=== PATIENT | male | born 1960 | race Caucasian/White ===

== ENCOUNTER 2017-01-24 00:24 | Emergency (ER) | payer OTHER ==
--- NOTE | 2017-01-24 01:03 | ED NURSING NOTES ---
Clinical Report - Nurses [facility] [address] [place] [place] [address] 01/24/2017 0:24 Patient: MACIEL BAHENA TRIAGE Triage time 00:28. Acuity: LEVEL 4. Chief Complaint: INJURY TO RIGHT HAND. 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 Last tetanus 7 years ago.). Alert. No acute distress. SEPSIS SCREEN: Sepsis Screen: negative. Negative (no infection suspected/documented). --00:32 Evert Rene R.N. 00:28 01/24/17. BP: 144/83 (regular adult cuff) taken on the left arm, via an automated monitor, while lying. HR: 80 (normal rate). RR: 16 (regular, unlabored and normal). O2 saturation: 100% on room air. Temp: 98.3 F (oral). Pain level now: 0/10. --00:32 Evert Rene R.N. Weight: 108.4 kg stated. Height/Length: 74 inches Per Patient. BMI: 30.7. --00:29 Evert Rene R.N. Medications Lipitor Oral. --00:30 Evert Rene R.N. Venlafaxine HCl Oral. --00:30 Evert Rene R.N. Medication/allergy information source: the patient. --00:32 Evert Rene R.N. Allergies No Known Drug Allergy. --00:30 Evert Rene R.N. History Arrived by private vehicle. Historian: patient. Unaccompanied. This occurred just prior to arrival. He sustained a laceration. 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 PAST MEDICAL HX: Tetanus status: up-to-date. SOCIAL HX: Never smoker. No alcohol use or drug use. He has not traveled outside the [place] The patient was not exposed to MRSA. ABUSE ASSESSMENT: Abuse assessment: The patient was asked "Do you feel safe in your home?" and "Has anyone hurt you or threatened to hurt you?". No report of abuse. SELF HARM ASSESSMENT: A self harm assessment was performed. The patient answered "no" to the question "Do you have thoughts of harming or killing yourself?" and "Have you recently had thoughts about harming or killing others?". FALL RISK ASSESSMENT: Fall risk assessment completed. No fall risk identified. NUTRITIONAL RISK ASSESSMENT: The nutritional risk assessment revealed no deficiencies. FUNCTIONAL ASSESSMENT: Functional assessment: no impairments noted. LEARNING NEEDS ASSESSMENT: The learning needs assessment revealed no barriers. SKIN INTEGRITY ASSESSMENT: Skin integrity risk assessment completed. No skin integrity risk identified. --00:32 Evert Rene R.N. PROBLEMS: Anxiety Reaction. Depression. Hypercholesterolemia. --00:30 Evert Rene R.N. Assessment GENERAL / NEURO / PSYCH: Alert. Oriented X 4. Appears in no acute distress. [place] Coma Scale: 15- eyes open spontaneously (4); best verbal response- oriented x 4 (5); best motor response- obeys commands (6). Patient appears calm and cooperative. RESPIRATORY: No respiratory distress. Respirations not labored. SKIN: Skin is warm and dry. --00:32 Evert Rene R.N. Interventions ID band on patient. To treatment room. --00:32 Evert Rene R.N. PHYSICAL ASSESSMENT Ambulatory to room. GENERAL / NEURO / PSYCH: Oriented X 4. Alert. Appears in no acute distress. RESPIRATORY: No respiratory distress. Respirations not labored. EXTREMITIES: Capillary refill is less than 2 seconds in the extremities. Extremity pulses are within normal limits. Extremities exhibit normal ROM. Neuro-vascular status intact to the extremity. Right hand. Dorsal right hand. Right little finger: tenderness and superficial laceration. No deformity. No limitation in movement. SKIN: Skin intact. Skin is warm and dry. --00:33 Evert Rene R.N. NURSING PROGRESS NOTES The initial plan of care for this patient has been created This plan of care was discussed with the patient. Neuro-vascular extremity check distal to injury: pulses intact, no edema, capillary refill <2 seconds and sensation intact. Reassurance given to the patient. Two patient identifiers checked. Call light placed in reach. Side rails up x 1. Bed placed in lowest position. Brakes of bed on. --00:33 Evert Rene R.N. WOUND REPAIR: Wound repair performed by ED physician. The wound is located on the right little finger. Preparation: suture tray set-up with 1% lidocaine. Procedure: wound repaired with sutures (1 pack). Post-procedure: he was stable, no complications, bleeding controlled, neuro-vascular status intact distal to wound and dressing applied. Applied clean dressing consisting of Band-Aid, following the application of antibiotic ointment (bacitracin). --01:09 Evert Rene R.N. DISPOSITION / DISCHARGE Departure time: 01:11. Condition at departure: stable. The goals identified in the patient's plan of care were met. No learning barriers present. Discharge instructions provided and reviewed with the patient. Patient verbalized understanding. Written instructions provided in Yemeni. ( Maciel verbalizes understanding of all d/c instructions including need to keep wound clean, dry and f/u with PCP for wound re-check and removal or stitches. He has no questions and voices no concerns at this time.). The patient was discharged by the physician. He was discharged home and unaccompanied at time of discharge. He left the Emergency Department ambulatory and via private vehicle. Patient driving. JANEE COMA SCORE: [place] Coma Scale: 15- eyes open spontaneously (4); best verbal response- oriented x 4 (5); best motor response- obeys commands (6). --01:11 Evert Rene R.N. 01:09 01/24/17. BP: deferred. HR: deferred. RR: deferred. O2 saturation: deferred. Temp: deferred. Pain level now deferred. --01:11 Evert Rene R.N. Locked/Released at 01/24/2017 1:11 by Evert Rene R.N.
--- NOTE | 2017-01-24 01:03 | ED NURSING NOTES ---
Clinical Report - Nurses [facility] [address] [place] [address] 01/24/2017 0:24 Patient: MACIEL BAHENA TRIAGE Triage time 00:28. Acuity: LEVEL 4. Chief Complaint: INJURY TO RIGHT HAND. 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 Last tetanus 7 years ago.). Alert. No acute distress. SEPSIS SCREEN: Sepsis Screen: negative. Negative (no infection suspected/documented). --00:32 Evert Rene R.N. 00:28 01/24/17. BP: 144/83 (regular adult cuff) taken on the left arm, via an automated monitor, while lying. HR: 80 (normal rate). RR: 16 (regular, unlabored and normal). O2 saturation: 100% on room air. Temp: 98.3 F (oral). Pain level now: 0/10. --00:32 Evert Rene R.N. Weight: 108.4 kg stated. Height/Length: 74 inches Per Patient. BMI: 30.7. --00:29 Evert Rene R.N. Medications Lipitor Oral. --00:30 Evert Rene R.N. Venlafaxine HCl Oral. --00:30 Evert Rene R.N. Medication/allergy information source: the patient. --00:32 Evert Rene R.N. Allergies No Known Drug Allergy. --00:30 Evert Rene R.N. History Arrived by private vehicle. Historian: patient. Unaccompanied. This occurred just prior to arrival. He sustained a laceration. 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 PAST MEDICAL HX: Tetanus status: up-to-date. SOCIAL HX: Never smoker. No alcohol use or drug use. He has not traveled outside the [place] The patient was not exposed to MRSA. ABUSE ASSESSMENT: Abuse assessment: The patient was asked "Do you feel safe in your home?" and "Has anyone hurt you or threatened to hurt you?". No report of abuse. SELF HARM ASSESSMENT: A self harm assessment was performed. The patient answered "no" to the question "Do you have thoughts of harming or killing yourself?" and "Have you recently had thoughts about harming or killing others?". FALL RISK ASSESSMENT: Fall risk assessment completed. No fall risk identified. NUTRITIONAL RISK ASSESSMENT: The nutritional risk assessment revealed no deficiencies. FUNCTIONAL ASSESSMENT: Functional assessment: no impairments noted. LEARNING NEEDS ASSESSMENT: The learning needs assessment revealed no barriers. SKIN INTEGRITY ASSESSMENT: Skin integrity risk assessment completed. No skin integrity risk identified. --00:32 Evert Rene R.N. PROBLEMS: Anxiety Reaction. Depression. Hypercholesterolemia. --00:30 Evert Rene R.N. Assessment GENERAL / NEURO / PSYCH: Alert. Oriented X 4. Appears in no acute distress. [place] Coma Scale: 15- eyes open spontaneously (4); best verbal response- oriented x 4 (5); best motor response- obeys commands (6). Patient appears calm and cooperative. RESPIRATORY: No respiratory distress. Respirations not labored. SKIN: Skin is warm and dry. --00:32 Evert Rene R.N. Interventions ID band on patient. To treatment room. --00:32 Evert Rene R.N. PHYSICAL ASSESSMENT Ambulatory to room. GENERAL / NEURO / PSYCH: Oriented X 4. Alert. Appears in no acute distress. RESPIRATORY: No respiratory distress. Respirations not labored. EXTREMITIES: Capillary refill is less than 2 seconds in the extremities. Extremity pulses are within normal limits. Extremities exhibit normal ROM. Neuro-vascular status intact to the extremity. Right hand. Dorsal right hand. Right little finger: tenderness and superficial laceration. No deformity. No limitation in movement. SKIN: Skin intact. Skin is warm and dry. --00:33 Evert Rene R.N. NURSING PROGRESS NOTES The initial plan of care for this patient has been created This plan of care was discussed with the patient. Neuro-vascular extremity check distal to injury: pulses intact, no edema, capillary refill <2 seconds and sensation intact. Reassurance given to the patient. Two patient identifiers checked. Call light placed in reach. Side rails up x 1. Bed placed in lowest position. Brakes of bed on. --00:33 Evert Rene R.N. WOUND REPAIR: Wound repair performed by ED physician. The wound is located on the right little finger. Preparation: suture tray set-up with 1% lidocaine. Procedure: wound repaired with sutures (1 pack). Post-procedure: he was stable, no complications, bleeding controlled, neuro-vascular status intact distal to wound and dressing applied. Applied clean dressing consisting of Band-Aid, following the application of antibiotic ointment (bacitracin). --01:09 Evert Rene R.N. DISPOSITION / DISCHARGE Departure time: 01:11. Condition at departure: stable. The goals identified in the patient's plan of care were met. No learning barriers present. Discharge instructions provided and reviewed with the patient. Patient verbalized understanding. Written instructions provided in Czech. ( Maciel verbalizes understanding of all d/c instructions including need to keep wound clean, dry and f/u with PCP for wound re-check and removal or stitches. He has no questions and voices no concerns at this time.). The patient was discharged by the physician. He was discharged home and unaccompanied at time of discharge. He left the Emergency Department ambulatory and via private vehicle. Patient driving. JANEE COMA SCORE: [place] Coma Scale: 15- eyes open spontaneously (4); best verbal response- oriented x 4 (5); best motor response- obeys commands (6). --01:11 Evert Rene R.N. 01:09 01/24/17. BP: deferred. HR: deferred. RR: deferred. O2 saturation: deferred. Temp: deferred. Pain level now deferred. --01:11 Evert Rene R.N. Locked/Released at 01/24/2017 1:11 by Evert Rene R.N.
--- NOTE | 2017-01-24 01:03 | ED CLINICAL REPORT ---
Clinical Report - Physicians/Mid Levels [facility] [address] [place] [address] 01/24/2017 0:24 Patient: BOUBACAR BAHENA Time Seen: 00:30. Arrived- By private vehicle. Historian- patient. HISTORY OF PRESENT ILLNESS Chief Complaint: Injury to the right 5th (little) finger. The injury happened just prior to arrival. Occurred at home. 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 Patient is experiencing mild pain. No other injury. REVIEW OF SYSTEMS The patient sustained a laceration. No swelling, tingling, numbness, weakness or foreign body. All systems otherwise negative, except as recorded above. PAST HISTORY Problems: Anxiety Reaction. Depression. Hypercholesterolemia. Additional Surgeries: no known surgeries. Medications: Venlafaxine HCl Oral. Lipitor Oral. Allergies: No Known Drug Allergy. SOCIAL HISTORY Never smoker. No alcohol use or drug use. ADDITIONAL NOTES The nursing notes have been reviewed. PHYSICAL EXAM Vital Signs: 01/24/2017 00:28 BP: 144/83. HR: 80. RR: 16. O2 saturation: 100%. Temp: 98.3 F. Pain level now: 0/10. Have been reviewed. Appearance: Alert. Oriented X3. No acute distress. Head: Head atraumatic. Eyes: Eyes normal inspection. ENT: Nose normal. Neck: Normal inspection. CVS: Pulses normal. Respiratory: No respiratory distress. Back: ROM normal. Skin: Skin warm and dry. Extremities: Right little finger: mild tenderness and subcutaneous 1.5 cm laceration of the dorsal aspect and PIP joint. Neurovascular intact distally. No erythema, swelling, abrasion, ecchymosis or puncture wound. No foreign body or deformity. No limitation in movement. No subungual hematoma or amputation present. No hand injury. Hand and wrist exam otherwise negative. Extremities otherwise negative. Neuro, Vascular and Tendons: Vascular status intact. Sensation intact. Motor intact. Tendon function intact. Neuro: No motor deficit. No sensory deficit. (Grossly oriented.). LABS, X-RAYS, AND EKG Pulse Oximetry: 01/24/2017 00:28 O2 saturation: 100%. (FIO2 - room air). Interpretation: normal. PROGRESS AND PROCEDURES Laceration Repair: Location: right little finger. Length: 1.5cm. Complexity: simple (local anesthesia used and sutured). Wound depth/shape- subcutaneous and linear. Wound is clean. Distal neuro/vascular/tendon status normal. No tendon deficit. Local anesthesia provided using 2% lidocaine. Prepped with Betadine. Wound explored, cleansed, irrigated and examined to the base in bloodless field with normal saline. Closure of skin: interrupted 5-0 nylon (4 sutures). Post-procedure: he is stable and there are no complications. Bleeding is controlled and neuro-vascular status is intact distal to the wound. Dressing applied. Tetanus immunization up-to-date. Patient counseled in person regarding the patient's stable condition, diagnosis and need for follow-up. Concerns were addressed. Old medical records reviewed. Disposition: Discharged. Condition: stable and improved. CLINICAL IMPRESSION Single superficial laceration to the right little finger.No foreign body present or right fingernail injury. INSTRUCTIONS Protect wound and keep wound area clean. (You may let water run over your wound, but do not immerse, rub, or scrub the wound until sutures are removed.). Warnings: GENERAL WARNINGS: Return or contact your physician immediately if your condition worsens or changes unexpectedly, if not improving as expected, or if other problems arise. Your Current Medications: CONTINUE TAKING THE FOLLOWING MEDICATIONS: Lipitor Oral. Venlafaxine HCl Oral. Follow-up: Follow up with your doctor in seven days for suture removal. Understanding of the discharge instructions verbalized by patient. (Electronically signed by Ayla Galeano MD 02/02/2017 13:35)
--- NOTE | 2017-01-24 01:03 | ED CLINICAL REPORT ---
Clinical Report - Physicians/Mid Levels [facility] [address] [place] [place] [address] 01/24/2017 0:24 Patient: BOUBACAR BAHENA Time Seen: 00:30. Arrived- By private vehicle. Historian- patient. HISTORY OF PRESENT ILLNESS Chief Complaint: Injury to the right 5th (little) finger. The injury happened just prior to arrival. Occurred at home. 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 Patient is experiencing mild pain. No other injury. REVIEW OF SYSTEMS The patient sustained a laceration. No swelling, tingling, numbness, weakness or foreign body. All systems otherwise negative, except as recorded above. PAST HISTORY Problems: Anxiety Reaction. Depression. Hypercholesterolemia. Additional Surgeries: no known surgeries. Medications: Venlafaxine HCl Oral. Lipitor Oral. Allergies: No Known Drug Allergy. SOCIAL HISTORY Never smoker. No alcohol use or drug use. ADDITIONAL NOTES The nursing notes have been reviewed. PHYSICAL EXAM Vital Signs: 01/24/2017 00:28 BP: 144/83. HR: 80. RR: 16. O2 saturation: 100%. Temp: 98.3 F. Pain level now: 0/10. Have been reviewed. Appearance: Alert. Oriented X3. No acute distress. Head: Head atraumatic. Eyes: Eyes normal inspection. ENT: Nose normal. Neck: Normal inspection. CVS: Pulses normal. Respiratory: No respiratory distress. Back: ROM normal. Skin: Skin warm and dry. Extremities: Right little finger: mild tenderness and subcutaneous 1.5 cm laceration of the dorsal aspect and PIP joint. Neurovascular intact distally. No erythema, swelling, abrasion, ecchymosis or puncture wound. No foreign body or deformity. No limitation in movement. No subungual hematoma or amputation present. No hand injury. Hand and wrist exam otherwise negative. Extremities otherwise negative. Neuro, Vascular and Tendons: Vascular status intact. Sensation intact. Motor intact. Tendon function intact. Neuro: No motor deficit. No sensory deficit. (Grossly oriented.). LABS, X-RAYS, AND EKG Pulse Oximetry: 01/24/2017 00:28 O2 saturation: 100%. (FIO2 - room air). Interpretation: normal. PROGRESS AND PROCEDURES Laceration Repair: Location: right little finger. Length: 1.5cm. Complexity: simple (local anesthesia used and sutured). Wound depth/shape- subcutaneous and linear. Wound is clean. Distal neuro/vascular/tendon status normal. No tendon deficit. Local anesthesia provided using 2% lidocaine. Prepped with Betadine. Wound explored, cleansed, irrigated and examined to the base in bloodless field with normal saline. Closure of skin: interrupted 5-0 nylon (4 sutures). Post-procedure: he is stable and there are no complications. Bleeding is controlled and neuro-vascular status is intact distal to the wound. Dressing applied. Tetanus immunization up-to-date. Patient counseled in person regarding the patient's stable condition, diagnosis and need for follow-up. Concerns were addressed. Old medical records reviewed. Disposition: Discharged. Condition: stable and improved. CLINICAL IMPRESSION Single superficial laceration to the right little finger.No foreign body present or right fingernail injury. INSTRUCTIONS Protect wound and keep wound area clean. (You may let water run over your wound, but do not immerse, rub, or scrub the wound until sutures are removed.). Warnings: GENERAL WARNINGS: Return or contact your physician immediately if your condition worsens or changes unexpectedly, if not improving as expected, or if other problems arise. Your Current Medications: CONTINUE TAKING THE FOLLOWING MEDICATIONS: Lipitor Oral. Venlafaxine HCl Oral. Follow-up: Follow up with your doctor in seven days for suture removal. Understanding of the discharge instructions verbalized by patient. (Electronically signed by Ayla Galeano MD 02/02/2017 13:35)
--- NOTE | 2017-02-02 13:35 | ED MAR SUMMARY ---
..... Medication Administration Record [facility] [address] [id number] Patient: BOUBACAR BAHENA Visit ID: [id number] 57y, M Weight: 108.4 kg Height/Length: 74 in BMI: 30.7 ALLERGIES: No Known Drug Allergy
--- NOTE | 2017-02-02 13:35 | ED MAR SUMMARY ---
..... Medication Administration Record [facility] [address] [place] [id number] Patient: BOUBACAR BAHENA Visit ID: [id number] 57y, M Weight: 108.4 kg Height/Length: 74 in BMI: 30.7 ALLERGIES: No Known Drug Allergy
--- NOTE | 2017-02-02 13:35 | ED MED RECONCILIATION SUMMARY ---
Patient: BOUBACAR BAHENA Medication Reconciliation Report [facility] VisitID: [id number] [address] [place] [address] 57y, M Registration Date/Time: 01/24/2017 Weight: 108.4 kg Height/Length: 74 in. BMI: 30.7 ALLERGIES: No Known Drug Allergy The patient's Home Medications are listed below: CONTINUE TAKING THE FOLLOWING MEDICATIONS: Lipitor Oral Venlafaxine HCl Oral The source(s) of the original Home Medication information: patient The following Medications were given to the patient in the Emergency Department: None. The following Medications were prescribed to the patient: None.
--- NOTE | 2017-02-02 13:35 | ED MED RECONCILIATION SUMMARY ---
Patient: BOUBACAR BAHENA Medication Reconciliation Report [facility] VisitID: [id number] [address] [place] [address] 57y, M Registration Date/Time: 01/24/2017 Weight: 108.4 kg Height/Length: 74 in. BMI: 30.7 ALLERGIES: No Known Drug Allergy The patient's Home Medications are listed below: CONTINUE TAKING THE FOLLOWING MEDICATIONS: Lipitor Oral Venlafaxine HCl Oral The source(s) of the original Home Medication information: patient The following Medications were given to the patient in the Emergency Department: None. The following Medications were prescribed to the patient: None.
--- NOTE | 2017-02-02 13:35 | ED DISCHARGE INSTRUCTIONS ---
Patient: BOUBACAR BAHENA General Instructions [facility] VisitID: [id number] [place] [address] 57y, M Registration Date/Time: 01/24/2017 Single superficial laceration to the right little finger.No foreign body present or right fingernail injury. INSTRUCTIONS Protect wound and keep wound area clean. (You may let water run over your wound, but do not immerse, rub, or scrub the wound until sutures are removed.). Warnings: GENERAL WARNINGS: Return or contact your physician immediately if your condition worsens or changes unexpectedly, if not improving as expected, or if other problems arise. Your Current Medications: CONTINUE TAKING THE FOLLOWING MEDICATIONS: Lipitor Oral. Venlafaxine HCl Oral. Follow-up: Follow up with your doctor in seven days for suture removal. Understanding of the discharge instructions verbalized by patient. ADDITIONAL INFORMATION Laceration, Extremity (Sutures, Kvng, Or Tape) A laceration is a cut through the skin. This will usually require stitches (sutures) or kvng if it is deep. Minor cuts may be treated with surgical tape closures. Home care The following guidelines will help you care for your laceration at home: Keep the wound clean and dry. If a bandage was applied and it becomes wet or dirty, replace it. Otherwise, leave it in place for the first 24 hours, then change it once a day or as directed. If stitches or kvng were used, clean the wound daily: After removing the bandage, wash the area with soap and water. Use a wet cotton swab to loosen and remove any blood or crust that forms. After cleaning, keep the wound clean and dry. Talk with your doctor before applying any antibiotic ointment to the wound. Reapply the bandage. You may remove the bandage to shower as usual after the first 24 hours, but do not soak the area in water (no swimming) until the stitches or kvng are removed. If surgical tape closures were used, keep the area clean and dry. If it becomes wet, blot it dry with a towel. The doctor may prescribe an antibiotic cream or ointment to prevent infection. Do not stop taking this medication until you have finished the prescribed course or the doctor tells you to stop. The doctor may also prescribe medications for pain. Follow the doctors instructions for taking these medications. If you have chronic liver or kidney disease or ever had a stomach ulcer or GI bleeding, talk with your doctor before using these medicines. Follow-up care Follow up with your health care provider. Most skin wounds heal within ten days. However, an infection may sometimes occur despite proper treatment. Therefore, check the wound daily for the signs of infection listed below. Stitches and kvng should be removed within 714 days. If surgical tape closures were used, you may remove them after 10 days, if they have not fallen off by then. Notify your doctor if you notice persistent numbness or weakness in the injured extremity. (Note:A radiologist will review any X-rays that were taken. We will notify you of any new findings that may affect your care.) When to seek medical care Get prompt medical attention if any of these occur: Increasing pain in the wound Redness, swelling, or pus coming from the wound Fever of 100.4F (38C) or higher, or as directed by your health care provider If stitches or kvng come apart or fall out before your next appointment If the surgical tape closures fall off within seven days, or the wound edges re-open Bleeding not controlled by direct pressure You have been given the following additional information: Laceration, Extrem (Suture, Staple, Or Tape) (Electronically signed by Ayla Galeano MD 02/02/2017 13:35)
== END 2017-01-24 01:11 | disposition home or self-care (01) ==
LOC: ED SRH 00:24
DX: S61.216A Laceration without foreign body of right little finger without damage to nail, initial encounter (principal); W26.0XXA Contact with knife, initial encounter; Y93.G1 Activity, food preparation and clean up; Y92.009 Unspecified place in unspecified non-institutional (private) residence as the place of occurrence of the external cause; Y99.8 Other external cause status